=== PATIENT | female | born 1940 | race Caucasian/White ===

== ENCOUNTER 2016-12-17 10:43 | Outpatient (CLI) ==
--- NOTE | 2016-12-17 11:33 | CT ---
EXAM: CT abdomen pelvis without contrast HISTORY: Left upper quadrant pain of concern for renal stone. Patient with history of prior append ectomy COMPARISON: None TECHNIQUE: Serial axial images of the abdomen pelvis were performed from the lung bases through the inferior pelvis without contrast. These were viewed in multiple planes. FINDINGS: The lung bases are clear. Evaluation is limited due to lack of contrast. Liver is unremarkable. The gallbladder is mildly di stended. The adrenal glands are normal. The spleen is normal. Pancreas is normal. The kidneys de monstrate no hydronephrosis, hydroureter or stone. The stomach is normal. Infrarenal abdominal aort a demonstrates moderate calcific atherosclerotic disease. Small bowel in the abdomen pelvis is unremarkable. The colon demonstrates wall thickening and infla mmatory stranding in the sigmoid colon. There is an adjacent low attenuation collection measuring 3 .2 x 6.7 and 3 cm. There is no free air or central gas. There is questionable connection of this co llection on coronal image 49 and axial image 107. The uterus is unremarkable. The urinary bladder is mildly distended. There is no free air. There is no layering fluid in the pelvis. The osseous structures are unremarkable. IMPRESSION: 1. Findings are suggestive of sigmoid diverticulitis with adjacent low attenuation collection that may represent a developing phlegmon/abscess. This measures Hounsfield units above simple fluid with no internal gas but is immediately adjacent to and may extend from the adjacent inflamed sigmoid co henrietta. 2. Moderate atherosclerotic disease and multilevel degenerative disease of the spine. Results were discussed with Dr. Dugan at 11:27 a.m. the same day as exam.
== END 2016-12-17 10:44 | disposition home or self-care (01) ==
LOC: RAD 10:43
PROVIDERS: ATTEND Family Medicine
DX: R10.12 Left upper quadrant pain (principal)
CPT/HCPCS: 74176

== ENCOUNTER 2017-11-22 08:12 | Outpatient (CLI) ==
--- NOTE | 2017-11-22 09:40 | MRI ---
EXAM: MRI lumbar spine without IV contrast. DATE: 22 November 2017. HISTORY: Left side sciatica. Low back pain. Pain radiating into the left hip and leg. TECHNIQUE: Sagittal and axial T1W and T2W sequences of the lumbar spine along with sagittal IR and c oronal T2W sequences were obtained using 1.2 Lucia magnet. No IV contrast. COMPARISON: CT abdomen/pelvis 17 December 2016. FINDINGS: There are five [id number] lumbar vertebra. No lumbar scoliosis is evident. Minor le ftward curvature of the thoracic spine is suspected. A 1 mm anterior subluxation of S1 relative to L 5 is observed. No other subluxation, acute fracture, osseous malignancy, or pars interarticularis de fect is demonstrated. Lumbar vertebra are normal in height. Small osteophytes are present at multip le lower thoracic and lumbar vertebra. T2W/T1W bone marrow signal is brighter than typically seen. Mild disc space narrowing is demonstrated at L5-S1. Remaining intervertebral discs are normal in hei ght. No acute sacral fracture or stress reaction is identified. SI joints are unremarkable. Conus medullaris terminates at L2. Visible spinal cord is normal. No retroperitoneal lymphadenopathy or paraspinal masses detected. Prominent infundibulum vs small an eurysm is suspected at the SMA origin. Aorta tapers to 2 cm at the L3 level, then dilates to 2.4 cm near the L4 supra endplate. Atherosclerotic plaques are present in the aortic wall. Psoas muscles a re normal. There is mild bilateral posterior paraspinal muscle atrophy. Visible portions of the thalia er, spleen, gallbladder, and kidneys are normal. The adrenal bodies appear to be upper normal in darrin meter, without distinct focal masses. Descending and sigmoid colon diverticuli are revealed. Segmental analysis: T11-12: Sagittal images reveal minor posterior disc bulge, but no cord compression, central stenosis or foraminal stenosis. T12-L1: Minor posterior disc bulge (with midline annular fissure) does not cause cord compression, c entral stenosis or foraminal stenosis. L1-2: Minor posterior disc bulge causes minor left foraminal narrowing. No central canal stenosis. L2-3: Minor concentric disc bulge causes minor bilateral foraminal narrowing. No central canal sten osis. L3-4: Minor concentric disc bulge causes minor right and mild left foraminal narrowing. No central canal stenosis. L4-5: Small concentric disc bulge and minor left facet arthropathy cause mild bilateral foraminal na rrowing. No central canal stenosis. L5-S1: Small concentric disc bulge, superimposed midline disc protrusion (2.5 mm AP x 9 mm transvers e) and minor facet arthropathy cause mild bilateral foraminal narrowing. No central canal stenosis. IMPRESSIONS: 1. L-spine minor spondylosis, facet arthropathy, and DDD. 2. No lumbar spine central canal stenosis. 3. Multilevel lumbar foraminal stenoses (minor/mild). 4. Bone marrow fatty infiltration - consider osteoporosis. 5. Marked aortic and common iliac artery atherosclerosis. 6. Infrarenal aortic ectasia and possible tiny saccular aneurysm. 7. Descending and sigmoid colon diverticulosis.
== END 2017-11-22 08:13 | disposition home or self-care (01) ==
LOC: RAD 08:12
PROVIDERS: ATTEND Family Medicine
DX: M54.42 Lumbago with sciatica, left side (principal)

== ENCOUNTER 2018-09-01 09:18 | Outpatient (CLI) ==
--- NOTE | 2018-09-01 10:17 | US ---
EXAM: Carotid ultrasound HISTORY: Carotid bruit COMPARISON: None TECHNIQUE: Carotid ultrasound was performed using Duplex imaging with fuentes scale, color, and Doppler imaging performed. FINDINGS: Right carotid: There is atherosclerotic plaque in the common carotid and bulb/internal carotid arter y. Peak systolic velocity measurement in the right internal carotid artery is 0.65 meters per second . End-diastolic velocity measurement in the right internal carotid artery is 0.23 meters per second. Right internal to common carotid artery peak systolic velocity ratio is 1.4. Right vertebral artery not visualized. Left carotid: There is atherosclerotic plaque in the common carotid and bulb/internal carotid artery . Peak systolic velocity measurement in the left internal carotid artery is 0.83 meters per second. End-diastolic velocity measurement in the left internal carotid artery is 0.30 meters per second. L eft internal to common carotid artery peak systolic velocity ratio measures 2.3. Flow in the left ve rtebral artery is antegrade. IMPRESSION: 1. Right internal carotid: Peak systolic velocity corresponds with mild (less than 50%) stenosis. 2. Left internal carotid: Peak systolic velocity corresponds with mild (less than 50%) stenosis, wit h the ICA/CCA ratio corresponding with moderate (50 - 69%) stenosis. 3. Right vertebral artery not visualized. Antegrade flow left vertebral artery.
== END 2018-09-01 09:19 | disposition home or self-care (01) ==
LOC: RAD 09:18
PROVIDERS: ATTEND Family Medicine
DX: R09.89 Other specified symptoms and signs involving the circulatory and respiratory systems (principal); R42 Dizziness and giddiness